=== PATIENT | female | born 1960 | race Caucasian/White ===

== ENCOUNTER 2022-02-05 09:41 | Day surgery (SDC) | payer BC, OTHER ==
[2022-01-31 15:46] VITALS: BMI 28.3
[2022-02-05] MEDS ORDERED: ONDANSETRON 4 MG/2 ML VIAL ONE ×2 (10:27→11:40)
[2022-02-05] MEDS ORDERED: MIDAZOLAM HCL 2 MG/2 ML SINGLE DOSE VIAL ONE (10:27)
[2022-02-05] MEDS ORDERED: DEXAMETHASONE SOD PHOSPHATE 4 MG/1 ML VIAL ONE ×2 (10:27→11:40)
[2022-02-05] MEDS ORDERED: ROPIVACAINE HCL 0.5% 30ML VIAL ONE (10:28)
[2022-02-05] MEDS ORDERED: BUPIVACAINE HCL 100 ML ONE (10:31)
[2022-02-05] MEDS ORDERED: PROPOFOL 40 ML ONE (10:58)
[2022-02-05] MEDS ORDERED: ceFAZolin SODIUM 1 GM VIAL ONE (10:58)
[2022-02-05 12:03] VITALS: RESP 16; TEMP 97.7
[2022-02-05 12:28] VITALS: BP 121/52; PULSE 70
[2022-02-05] MEDS ORDERED: oxyCODONE HCL 5 MG TABLET PO PRN ×2 (12:49)
[2022-02-05] MEDS ORDERED: ONDANSETRON 4 MG/2 ML VIAL IVPUSH PRN (12:49)
[2022-02-05] MEDS ORDERED: ACETAMINOPHEN 325 MG TABLET (FP) PO PRN (12:49)
[2022-02-05] MEDS ORDERED: LACTATED RINGERS SOLUTION 1,000 ML IV SCH (13:00)
== END 2022-02-05 13:10 | disposition home or self-care (01) ==
LOC: FASU 09:41
PROVIDERS: ATTEND Orthopaedic Surgery Hand Surgery
PROC: 0LN60ZZ Release Left Lower Arm and Wrist Tendon, Open Approach (ICD-10-PCS; 2022-02-05)
PROC: 0PSJ04Z Reposition Left Radius with Internal Fixation Device, Open Approach (ICD-10-PCS; principal; 2022-02-05 11:09)
DX: S52.572A Other intraarticular fracture of lower end of left radius, initial encounter for closed fracture (principal); X58.XXXA Exposure to other specified factors, initial encounter; Y93.9 Activity, unspecified; Y92.9 Unspecified place or not applicable
CPT/HCPCS: 25290; 25609; C1713; 73110-TC-LT-FY; 73130-TC-LT-FY

== ENCOUNTER 2022-02-24 19:04 | Emergency (ER) | payer BC, OTHER ==
[2022-02-24 19:13] VITALS: BP 131/76; PULSE 82; RESP 16; TEMP 99; BMI 28.3
== END 2022-02-24 20:44 | disposition home or self-care (01) ==
LOC: FER 19:04
DX: Z03.821 Encounter for observation for suspected ingested foreign body ruled out (principal)
CPT/HCPCS: 74018-TC-FY; 99283-25